=== PATIENT | female | born 1995 | race Caucasian/White ===

== ENCOUNTER 2023-06-15 23:45 | Emergency (ER) | payer BC ==
[~2023-06-15] VITALS: Ht 165.1 cm; Wt 95.3 kg
[2023-06-16 00:05] LABS: *BILIRUBIN,URIN NEGATIVE (NEGATIVE); *CLARITY,URINE CLEAR (CLEAR); *COLOR,URINE YELLOW (YELLOW); *KETONES,URINE 3+ (NEGATIVE); *PROTEIN,URINE 1+ (NEGATIVE); *UROBILINOGEN,URINE 0.2 E.U./dl (NORMAL); LEUKOCYTE ESTERASE ,URINE NEGATIVE (NEGATIVE); NITRITE, URINE NEGATIVE (NEGATIVE); UGLUCOSE NEGATIVE (NEGATIVE)
[2023-06-16 00:06] LABS: *BLOOD, URINE NEGATIVE (NEGATIVE)
[2023-06-16 00:29] LABS: *URINE HCG, QUAL NEGATIVE (NEGATIVE); BACTERIA,URINE NONE SEEN /HPF (NONE SEEN); SQUAMOUS EPITHELIAL CELL,UR FEW /HPF (NONE SEEN); WBC,URINE 0-3 /HPF (0-3)
[2023-06-16] MEDS ORDERED: ONDA4TAB5 PO (00:29)
[2023-06-16] MEDS ORDERED: DICY10CA13 PO (00:29)
[2023-06-16] MEDS: DICYCLOMINE HCL 10 MG CAPSULE PO STA (00:30)
[2023-06-16] MEDS ORDERED: DICYCLOMINE HCL 20 MG TABLET ONE (00:32)
[2023-06-16] MEDS ORDERED: ONDANSETRON HCL 4 MG TABLET ONE (00:32)
[2023-06-16] MEDS: ONDANSETRON HCL 4 MG TABLET PO ONE (00:35)
[2023-06-16 00:42] VITALS: BP 126/82; O2SAT 100
== END 2023-06-16 00:45 | disposition home or self-care (01) ==
LOC: ER 23:53
DX: E86.0 Dehydration (principal); R11.0 Nausea; R10.9 Unspecified abdominal pain; R10.2 Pelvic and perineal pain; F17.200 Nicotine dependence, unspecified, uncomplicated; Z79.899 Other long term (current) drug therapy
CPT/HCPCS: 84703; A4606; A4663; Q0162